=== PATIENT | female | born 1940 | race Caucasian/White ===

== ENCOUNTER 2024-12-03 11:19 | Outpatient (RCR) | payer MEDICARE | END 2024-12-09 | LOC: WCC 11:19 | PROVIDERS: ATTEND Nurse Practitioner Family | DX: T81.89XD Other complications of procedures, not elsewhere classified, subsequent encounter (principal) ==

== ENCOUNTER → 2024-12-12 | Outpatient (REF) | payer MEDICARE | LOC: MRI 09:20 | PROVIDERS: ATTEND Nurse Practitioner Family | DX: T81.89XD Other complications of procedures, not elsewhere classified, subsequent encounter (principal) | CPT/HCPCS: 70551 ==